=== PATIENT | female | born 1960 | race Caucasian/White ===

== ENCOUNTER 2016-07-24 01:53 | Emergency (ER) | payer OTHER ==
[2016-07-24 01:53] VITALS: BMI 34.3
--- NOTE | 2016-07-24 02:14 | EDPRACDOC ---
- General Information Chief Complaint: Abdominal Pain Stated Complaint: SHOB, VOMITING & BACK PAIN Time Seen by Provider: 07/24/16 02:07 Home Medications: Home Medications Valsartan [Diovan] 80 mg PO DAILY 08/03/12 Aspirin [Aspirin, Chewable] 81 mg PO DAILY 04/19/13 Epinephrine [Epipen 2-Raymond] 0.3 mg IM UNK #1 pen.injctr 04/19/13 HydrOXYzine HCl (Antihistamine [Atarax] 25 mg PO Q6 PRN #30 tab 04/19/13 Hydrochlorothiazide 25 mg PO DAILY 04/19/13 Loratadine [Allergy Relief] 10 mg PO DAILY 04/19/13 Omeprazole 40 mg PO DAILY 04/19/13 Prednisone [Sterapred Ds] 10 mg PO UNK #21 tab.ds.pk 04/19/13 Ranitidine [Zantac] 150 mg PO BID #20 tablet 04/19/13 Dicyclomine HCl [Bentyl] 20 mg PO Q6H PRN #30 tab 07/24/16 Ondansetron [Zofran Odt] 4 mg PO TID PRN #10 tab.rapdis 07/24/16 Allergies/Adverse Reactions: Allergies Allergy/AdvReac Type Severity Reaction Status Date / Time Sulfa (Sulfonamide Allergy Intermediate Rash-Genera Verified 04/19/13 09:31 Antibiotics) lized cetirizine HCl [From Zyrtec] Allergy Unknown/See Verified 04/19/13 09:31 Comments guaifenesin Allergy Unknown/See Verified 04/19/13 09:31 Comments - History of Present Illness Onset: [employer] HPI: PT COMPLAINS OF CRAMPING/ACHING LUQ ABD PAIN, N/V, HAS HAD "CHILLS" TONIGHT, GENERALIZED WEAKNESS, DIZZINESS, PAIN IN UPPER BACK AND SHOULDER BLADES, NO EXAC /AMEL FACTORS. RECENTLY STARTED ON NEW CHOLESTEROL MEDICATION. Pain Location: Reports: LUQ, LLQ Pain Context: Reports: Spontaneous Pain Severity: Severe Pain Quality: Reports: Aching, Cramping Pain Radiation: Reports: Shoulder, Back Control Method: Reports: BTL Female Abdominal History: Reports: Abdominal Surgery Modifying Factors: improves with: Nothing Female Associated Signs & Symptoms: Reports: Nausea, Vomiting, Chills. Denies: Frequency, Vaginal Bleeding, Hematemesis, Anorexia, Diarrhea, Melena, Dysuria, Fever, Urgency, Hematuria, Vaginal Discharge Oral Intake: Normal Urinary Output: Normal ED Past Medical History - History Reviewed Yes Nurses notes reviewed and agree except as marked - Patient Medical History Cardiac History: Reports: Hypertension, Hypercholesterolemia Systemic History: Denies: Cancer - Social Medical History Smoking Status: Never smoker ETOH: None Substance Abuse: None EDM Review of Systems - Review of Systems Constitutional: Chills, Fatigue, Weakness. negative: Fever Eyes: negative: Blurred Vision, Double Vision Ears: negative: Drainage Throat: negative: Pain Nose: negative: Congestion, Discharge Respiratory: negative: Cough, Shortness of Breath, Wheezing Cardiovascular: negative: Chest Pain, Palpitations Gastrointestinal: Nausea, Pain, Vomiting. negative: Diarrhea Genitourinary: negative: Dysuria, Frequency Neurological: Dizziness. negative: Headache, Numbness, Weakness Musculoskeletal: No Symptoms Reported Integumentary: No Symptoms Reported - Physical Exam Constitutional: Alert (Awake), No apparent distress Oriented to: Time, Person, Place Last recorded Vital Signs: Last Vital Signs Temp 98.8 F 07/24/16 02:01 Pulse 91 07/24/16 03:01 Resp 20 07/24/16 03:01 BP 116/56 L 07/24/16 03:01 Pulse Ox 91 07/24/16 03:01 Oxygen Pulse Oxygen Saturation 91 O2 Device Room Air Oxygen Flow Rate Fraction of Inspired Oxygen ( FIO2) - HEENT Head: Normal ( normocephalic) Eye Exam: Normal (PERRL, EOMI, Sclera white) Oropharynx: Normal (Pharynx:Moist without exudate,Gums-no swelling) Tympanic Membrane: Normal ENT EAC: Normal TMJ: Normal Nose: No Symptoms Reported (septum midline) Neck: Normal (FROM, trachea at midline) - Respiratory/Cardiovascular Respiratory: Normal - CTA (BBS clear to auscultation without adventitious sounds ) Cardiovascular: Normal (RRR without murmur, gallop or rub) - GI Auscultation: Normal (NABS) Palpation: Normal (Soft,No rebound or guarding, non distended) Tenderness: Diffuse (WORSE LUQ AND LLQ), Moderate Dozier's Sign: Negative - Musculoskeletal Back: Normal (Non-Tender) Extremities: Normal (Normal tone, Pulses 2+ No cyanosis or edema, FROM) - Integumentary Skin: Normal, Warm, Dry Lymphatics: Normal (no adenopathy) - Neurologic Memory Impaired: Normal Motor Function: Normal (Normal tone, Pulses 2+ No cyanosis or edema, FROM) Cranial Nerve: Normal (CN II-X11 intact sensation, strength 5/5) Cerebellar: Normal Mood Description: Normal Perception: Normal - Differential Diagnosis Appendicitis, Bowel Obstruction, Cholecystitis, Cholelithiasis, Constipation, Diverticulitis, IBS, Inflammatory Bowel Dz, Pancreatitis, UTI, Ureterolithiasis - Re-evaluation Re-evaluation 1 Re-evaluation Time: 03:50 (IMPROVED) - Results 07/24/16 02:40 07/24/16 02:40 WBC 10.0 xk/uL (3.8-10.8) 07/24/16 02:40 RBC 4.58 xM/uL (4.20-5.40) 07/24/16 02:40 Hgb 13.8 g/dL (12.0-16.0) 07/24/16 02:40 Hct 41.6 % (36-47) 07/24/16 02:40 MCV 91 fL (81-99) 07/24/16 02:40 MCH 30.1 pg (27-32) 07/24/16 02:40 MCHC 33.1 g/dl (33-36) 07/24/16 02:40 RDW 13.9 % (11.5-14.5) 07/24/16 02:40 Plt Count 185 xk/uL (130-400) 07/24/16 02:40 MPV 9.3 fL (7.4-10.4) 07/24/16 02:40 Neut % (Auto) Cancelled 07/24/16 02:40 Lymph % (Auto) Cancelled 07/24/16 02:40 [place] % (Auto) Cancelled 07/24/16 02:40 Eos % (Auto) Cancelled 07/24/16 02:40 Baso % (Auto) Cancelled 07/24/16 02:40 Absolute Neuts (auto) Cancelled 07/24/16 02:40 Absolute Lymphs (auto) Cancelled 07/24/16 02:40 Seg Neuts % (Manual) 92 % (45-76) H 07/24/16 02:40 Band Neutrophils % 0 % (0-5) 07/24/16 02:40 Lymphocytes % (Manual) 6 % (17-44) L 07/24/16 02:40 Monocytes % (Manual) 2 % (0-10) 07/24/16 02:40 Absolute Neutrophils 9.20 xk/uL (1.7-8.2) H 07/24/16 02:40 Absolute Lymphocytes 0.60 xk/uL (0.65-4.75) L 07/24/16 02:40 Vacuolated Neuts Few 07/24/16 02:40 Platelet Estimate Norm (NORMAL) 07/24/16 02:40 RBC Morphology Norm 07/24/16 02:40 Sodium 137 mEq/L (137-146) 07/24/16 02:40 Potassium 3.7 mEq/L (3.5-5.1) 07/24/16 02:40 Chloride 100 mEq/L (98-107) 07/24/16 02:40 Carbon Dioxide 25 mMOL/L (22-33) 07/24/16 02:40 Anion Gap 16 mEq/L (8-16) 07/24/16 02:40 BUN 23 MG/DL (7-17) H 07/24/16 02:40 Creatinine 0.90 MG/DL (0.52-1.04) 07/24/16 02:40 Estimated GFR (MDRD) > 60 mL/min (>=60) 07/24/16 02:40 Glucose 136 MG/DL (70-99) H 07/24/16 02:40 Calculated Osmolality 270 MOs/Kg (270-290) 07/24/16 02:40 Calcium 8.9 MG/DL (8.4-10.2) 07/24/16 02:40 Total Bilirubin 0.8 MG/DL (0.2-1.3) 07/24/16 02:40 AST 21 IU/L (14-36) 07/24/16 02:40 ALT 39 IU/L (9-52) 07/24/16 02:40 Alkaline Phosphatase 76 IU/L (38-126) 07/24/16 02:40 Total Protein 7.1 G/DL (6.3-8.2) 07/24/16 02:40 Albumin 4.0 G/DL (3.5-5.0) 07/24/16 02:40 Lipase 62 U/L (23-300) 07/24/16 02:40 Urine Color Yellow 07/24/16 03:15 Urine Clarity Sl cldy 07/24/16 03:15 Urine pH 7.0 (5.0-8.0) 07/24/16 03:15 Ur Specific [place] 1.005 (1.003-1.035) 07/24/16 03:15 Urine Protein 1+ (NEG/TRACE) H 07/24/16 03:15 Urine Glucose (UA) Neg (NEGATIVE) 07/24/16 03:15 Urine Ketones Neg (NEGATIVE) 07/24/16 03:15 Urine Occult Blood Neg (NEG/TRACE) 07/24/16 03:15 Urine Nitrite Neg (NEGATIVE) 07/24/16 03:15 Urine Bilirubin Neg (NEGATIVE) 07/24/16 03:15 Urine Urobilinogen 2 MG/DL (0-1) H 07/24/16 03:15 Ur Leukocyte Esterase Trace (NEGATIVE) H 07/24/16 03:15 Urine RBC 2-5 (0-5) 07/24/16 03:15 Urine WBC 0-2 (0-5) 07/24/16 03:15 Ur Epithelial Cells 3+ 07/24/16 03:15 Urine Bacteria 2+ (NEG/FEW) H 07/24/16 03:15 Urine Mucus Occ (NEG/OCC) 07/24/16 03:15 Lab Results 07/24/16 07/24/16 07/24/16 03:15 02:40 02:40 WBC 10.0 RBC 4.58 Hgb 13.8 Hct 41.6 MCV 91 MCH 30.1 MCHC 33.1 RDW 13.9 Plt Count 185 MPV 9.3 Neut % (Auto) Cancelled Lymph % (Auto) Cancelled [place] % (Auto) Cancelled Eos % (Auto) Cancelled Baso % (Auto) Cancelled Absolute Neuts (auto) Cancelled Absolute Lymphs (auto) Cancelled Seg Neuts % (Manual) 92 H Band Neutrophils % 0 Lymphocytes % (Manual) 6 L Monocytes % (Manual) 2 Absolute Neutrophils 9.20 H Absolute Lymphocytes 0.60 L Vacuolated Neuts Few Platelet Estimate Norm RBC Morphology Norm Sodium 137 Potassium 3.7 Chloride 100 Carbon Dioxide 25 Anion Gap 16 BUN 23 H Creatinine 0.90 Estimated GFR (MDRD) > 60 Glucose 136 H Calculated Osmolality 270 Calcium 8.9 Total Bilirubin 0.8 AST 21 ALT 39 Alkaline Phosphatase 76 Total Protein 7.1 Albumin 4.0 Lipase 62 Urine Color Yellow Urine Clarity Sl cldy Urine pH 7.0 Ur Specific [place] 1.005 Urine Protein 1+ H Urine Glucose (UA) Neg Urine Ketones Neg Urine Occult Blood Neg Urine Nitrite Neg Urine Bilirubin Neg Urine Urobilinogen 2 H Ur Leukocyte Esterase Trace H Urine RBC 2-5 Urine WBC 0-2 Ur Epithelial Cells 3+ Urine Bacteria 2+ H Urine Mucus Occ - Diagnostic Imaging CT ABD/PELVIS Image interpreted by: Radiologist 07/24/16 04:08 CT ABDOMEN AND PELVIS WITH CONTRAST TECHNIQUE: Multidetector CT imaging of the abdomen and pelvis was performed using the standard protocol following bolus administration of intravenous contrast. CONTRAST: 100 mL Isovue 370 IV COMPARISON: None. FINDINGS: Lower chest: The included lung bases are clear. Liver: No focal lesion. Hepatobiliary: Gallbladder physiologically distended, no calcified stone. No biliary dilatation. Pancreas: No ductal dilatation or inflammation. Spleen: Normal. Adrenal glands: No nodule. Kidneys: Symmetric renal enhancement and excretion. No hydronephrosis. Stomach/Bowel: Stomach physiologically distended. There are no dilated or thickened small bowel loops. Moderate volume of stool throughout the colon without colonic wall thickening. The appendix is normal. Vascular/Lymphatic: No retroperitoneal adenopathy. Abdominal aorta is normal in caliber. Reproductive: There is a 2.7 cm hypodense lesion in the left anterior fundus of the uterus, likely degenerating fibroid. Ovaries are symmetric in size. No pelvic free fluid. Bladder: Decompressed, not well evaluated. Other: No free air, free fluid, or intra-abdominal fluid collection. Musculoskeletal: There are no acute or suspicious osseous abnormalities. IMPRESSION: 1. No acute abnormality in the abdomen/pelvis. 2. Probable degenerating uterine fibroid. This is in the left aspect of the uterine fundus, could potentially cause left-sided pain. Decision Time to Discharge: 04:10 - Departure Disposition: Home Condition: Stable Final Diagnosis: Abdominal pain Nausea and vomiting Qualifiers: Vomiting type: unspecified Vomiting Intractability: non-intractable Qualified Code(s): R11.2 - Nausea with vomiting, unspecified Instructions: Acute Nausea and Vomiting (ED) Education/Counseling Given To: Patient Education/Counseling Given Regarding: Diagnosis, Treatment, Prognosis, Follow Up Referrals: Juanita Martinez MD [Primary Care Provider] - One Week Prescriptions: Dicyclomine HCl [Bentyl] 20 mg PO Q6H PRN #30 tab PRN Reason: Abdominal Pain Ondansetron [Zofran Odt] 4 mg PO TID PRN #10 tab.rapdis PRN Reason: Nausea/Vomiting Additional Instructions: N/V/D: clear liquids only for the next 6-8 hours, advance diet to bland as tolerated, return to the ED for any worsening symptoms or concerns.
[2016-07-24] MEDS ORDERED: NS 1,000 ML IV ONE (02:16)
[2016-07-24] MEDS ORDERED: MORPHINE 4 MG/ML INJECTION IV ONE (02:16)
[2016-07-24] MEDS ORDERED: ONDANSETRON HCL 4 MG/2 ML VIAL IV ONE (02:16)
[2016-07-24 02:48] LABS: MPV 9.3 fL (7.4-10.4)
[2016-07-24 02:56] LABS: BLOOD UREA NITROGEN 23 MG/DL (7-17); CALCIUM 8.9 MG/DL (8.4-10.2); CALCULATED OSMOLALITY 270 MOs/Kg (270-290); CHLORIDE 100 mEq/L (98-107); GLUCOSE 136 MG/DL (70-99); SODIUM LEVEL 137 mEq/L (137-146); TOTAL PROTEIN 7.1 G/DL (6.3-8.2)
[2016-07-24] MEDS ORDERED: Pharmacy Review for Metformin - IV Contrast Given SCH (03:00)
[2016-07-24 03:16] LABS: SEG NEUTROPHIL 92 % (45-76)
[2016-07-24 03:29] LABS: LEUKOCYTES/URINE TRACE (NEGATIVE); NITRITE/URINE NEG (NEGATIVE); URINE OCCULT BLOOD NEG (NEG/TRACE)
[2016-07-24 03:31] LABS: WBC/URINE 0-2 (0-5)
--- NOTE | 2016-07-24 04:04 | DIRPT ---
CLINICAL DATA: Left-sided abdominal pain. Nausea and vomiting. Symptom onset last evening. EXAM: CT ABDOMEN AND PELVIS WITH CONTRAST TECHNIQUE: Multidetector CT imaging of the abdomen and pelvis was performed using the standard protocol following bolus administration of intravenous contrast. CONTRAST: 100 mL Isovue 370 IV COMPARISON: None. FINDINGS: Lower chest: The included lung bases are clear. Liver: No focal lesion. Hepatobiliary: Gallbladder physiologically distended, no calcified stone. No biliary dilatation. Pancreas: No ductal dilatation or inflammation. Spleen: Normal. Adrenal glands: No nodule. Kidneys: Symmetric renal enhancement and excretion. No hydronephrosis. Stomach/Bowel: Stomach physiologically distended. There are no dilated or thickened small bowel loops. Moderate volume of stool throughout the colon without colonic wall thickening. The appendix is normal. Vascular/Lymphatic: No retroperitoneal adenopathy. Abdominal aorta is normal in caliber. Reproductive: There is a 2.7 cm hypodense lesion in the left anterior fundus of the uterus, likely degenerating fibroid. Ovaries are symmetric in size. No pelvic free fluid. Bladder: Decompressed, not well evaluated. Other: No free air, free fluid, or intra-abdominal fluid collection. Musculoskeletal: There are no acute or suspicious osseous abnormalities. IMPRESSION: 1. No acute abnormality in the abdomen/pelvis. 2. Probable degenerating uterine fibroid. This is in the left aspect of the uterine fundus, could potentially cause left-sided pain. Electronically Signed By: Racheal Castaneda M.D. On: 07/24/2016 04:01
[2016-07-24 04:55] VITALS: BP 122/55; PULSE 98; TEMP 99.7
== END 2016-07-24 04:30 | disposition home or self-care (01) ==
LOC: ED 01:53
DX: R11.2 Nausea with vomiting, unspecified (principal); R10.9 Unspecified abdominal pain
CPT/HCPCS: 36415; 74177; 80053; 81001; 83690; 85007; 85027; 96361; 96374; 96375; 99283; A9698; J2270; J2405